=== PATIENT | female | born 1970 | race Caucasian/White ===

== ENCOUNTER → 2016-09-08 | Outpatient (CLI) | payer OTHER | LOC: FIMAGING 13:37 | PROVIDERS: ATTEND Internal Medicine | DX: M53.3 Sacrococcygeal disorders, not elsewhere classified (principal) ==

== ENCOUNTER → 2016-09-08 | Outpatient (CLI) | payer OTHER | LOC: FIMAGING 11:46 | PROVIDERS: ATTEND Internal Medicine | DX: M47.817 Spondylosis without myelopathy or radiculopathy, lumbosacral region (principal); M51.9 Unspecified thoracic, thoracolumbar and lumbosacral intervertebral disc disorder; M53.3 Sacrococcygeal disorders, not elsewhere classified; M51.36 Other intervertebral disc degeneration, lumbar region; M51.37 Other intervertebral disc degeneration, lumbosacral region ==

== ENCOUNTER → 2016-09-19 | Outpatient (CLI) | payer OTHER | LOC: FIMAGING 15:31 | DX: Z12.31 Encounter for screening mammogram for malignant neoplasm of breast (principal) | CPT/HCPCS: G0202 ==

== ENCOUNTER 2016-11-07 11:59 | Observation (INO) | payer OTHER ==
--- NOTE | 2016-11-07 12:26 | CPEKG ---
Heart Rate: 87 RR Interval: 690 P-R Interval: 136 QRSD Interval: 84 QT Interval: 348 QTC Interval: 419 P [place]: 56 QRS [place]: -5 T Wave [place]: 37 EKG Severity - NORMAL ECG - EKG Impression: SINUS RHYTHM Electronically Signed By: Jayme Parks 07-Nov-2016 12:49:21
--- NOTE | 2016-11-07 12:45 | EDPHY ---
H & P Stated Complaint: CP, L ARM PAIN 4 DAY-[place] ER NEG, BLURRED VISION. Source: Patient Exam Limitations: No limitations - Personal History LMP (Females 10-55): Hysterectomy Current Tetanus/Diphtheria Vaccine: Unsure Current Tetanus Diphtheria and Acellular Pertussis (TDAP): Unsure - Medical/Surgical History Hx Asthma: Yes Hx Chronic Respiratory Disease: No Hx Diabetes: No Hx Cardiac Disease: No Hx Renal Disease: No Hx Cirrhosis: No Hx Alcoholism: No Hx HIV/AIDS: No Hx Splenectomy or Spleen Trauma: No Other PMH: Hysterectomy, Choleycystectomy, x 2, asthma. - Family History Significant Family History: Other (See HPI) - Social History Smoking Status: Light smoker Alcohol Use: Occasionally Drug Use: None Time Seen by Provider: 11/07/16 12:35 HPI/ROS: HPI: 46-year-old female presents to emergency department with chief concern 4/ 10 left-sided chest pain radiating into her left arm. Pain is intermittent lasting 15-30 minutes and resolves for up to an hour. It is not pleuritic. Symptoms onset 2 days ago and are associated with dizziness, shortness of breath , nausea, sweats, intermittent blurry vision. Was evaluated and released from the [facility] Emergency Department 2 evenings ago. Had nasal congestion 1 week ago that has resolved. Denies fever, chills, myalgias, cough, abdominal pain, vomiting, diarrhea, rash, urinary symptoms. No calf pain or swelling. Past medical history notable for untreated hyperlipidemia, hysterectomy, cholecystectomy, , asthma, anxiety, depression. Family history includes mother with coronary artery disease and 7 stents, 1st in her 40s. Mother from heart failure. Occasional alcohol, light smoker x2 years. ROS:10 point review of systems is negative other than as stated in HPI (Rosalba Alvarez) - Social History Additional Social History: (Rosalba Alvarez) - Physical Exam Exam: Vital signs stable, reviewed by me General: Awake, alert, calm, cooperative. No acute distress. Head: Normalocephalic. Atraumatic. EENT: PERRLA. EOMI. No pallor or injection. Anicteric. No nystagmus. No injection. TMs intact bilaterally with normal landmarks. No rhinnorhea, nasal passages clear. Oropharynx without redness, exudates, or lesions. Tonsils 2+ bilaterally, no exudates. Neck: Supple, nontender. No lymphadenopathy. Full range of motion. No meningismus. No carotid bruit, no JVD. Respiratory: Breathing unlabored. Breath sounds equal bilaterally and clear to auscultation. No adventitious sounds. CV: Chest nontender, atraumatic. Heart rate regular. No murmur, distal pulses 2+ bilaterally. Brisk cap refill all extremities. GI: Abdomen soft, nontender. Bowel sounds normoactive and positive x4 quadrants. Neuro: Alert. Oriented x 3. Speech clear. Nonfocal cranial nerves throughout. Sensation intact all extremities. Skin: Skin warm, dry, intact. No rashes, abrasions, or lacerations. Skin turgor normal. Extremities: Full range of motion in all 4 extremities. Strength 5+ all extremities. (Rosalba Alvarez) Constitutional: Initial Vital Signs Temperature (C) 36.8 C 11/07/16 12:02 Heart Rate 78 11/07/16 12:02 Respiratory Rate 18 11/07/16 12:02 Blood Pressure 141/90 H 11/07/16 12:02 O2 Sat (%) 98 11/07/16 12:02 O2 Delivery Mode Room Air Allergies/Adverse Reactions: codeine Allergy (Intermediate, Verified 11/07/16 12:06) Vomiting Home Medications: Medication Instructions Recorded Albuterol [Proventil Inhaler HFA 1 - 2 puffs IH DAILY PRN 11/07/16 (*)] Aspirin [Aspirin 325 mg (*)] 325 mg PO DAILY 11/07/16 Basic Digest Enzyme 1 TIDMEAL 11/07/16 Gabapentin [Neurontin 300 MG (*)] 300 mg PO HS 11/07/16 Herbals/Supplements -Info Only 1 ea PO DAILY 11/07/16 Ibuprofen [Motrin (*)] 800 mg PO DAILY PRN 11/07/16 Omeprazole [Prilosec 20 mg] 20 mg PO HS 11/07/16 Medical Decision Making - Diagnostics Imaging Results: Imaging Impressions Chest X-Ray 11/07/16 12:15 Impression: Mild cardiac silhouette enlargement, without congestive heart failure or focal infiltrate. ED Course/Re-evaluation: 1245:46-year-old female presents to ED with chest pain that has been ongoing for 2 days. Had a negative workup apparently at [facility] 2 evenings ago. Cardiac risk factors include hyperlipidemia, smoking. Her mother had 7 stents, 1st in her 40s. History includes anxiety but she has not experienced chest pain with this. Vitals are stable. EKG shows a sinus rhythm, rate 87, no evidence of ischemia. Reviewed by myself. Chest x-ray and labs are pending. 1352: D-dimer within normal. Troponin negative. Patient continues to have 4/ 10 chest pain. Given 2 mg morphine, 0.4 sublingual nitro with some improvement. Given her concerning family history, her history of untreated hyperlipidemia, she will be admitted under observation for repeat serial troponins. Report given to Carissa Fong np of hospitalist service. (Rosalba Alvarez) Differential Diagnosis: Differential diagnosis includes but is not limited to ACS, pulmonary embolism, musculoskeletal causes including costochondritis, anxiety, URI/pneumonia, reactive airway disease (Rosalba Alvarez) - Data Points Laboratory Results: Laboratory Results 11/07/16 13:00 11/07/16 13:00 11/07/16 11/07/16 11/07/16 13:00 13:00 13:00 WBC 5.28 10^3/uL 10^3/uL (3.80-9.50) RBC 4.94 10^6/uL 10^6/uL (4.18-5.33) Hgb 14.9 g/dL g/dL (12.6-16.3) Hct 43.3 % % (38.0-47.0) MCV 87.7 fL fL (81.5-99.8) MCH 30.2 pg pg (27.9-34.1) MCHC 34.4 g/dL g/dL (32.4-36.7) RDW 12.4 % % (11.5-15.2) Plt Count 252 10^3/uL 10^3/uL (150-400) MPV 10.3 fL fL (8.7-11.7) Neut % (Auto) 59.3 % % (39.3-74.2) Lymph % (Auto) 31.1 % % (15.0-45.0) [place] % (Auto) 6.6 % % (4.5-13.0) Eos % (Auto) 1.7 % % (0.6-7.6) Baso % (Auto) 0.9 % % (0.3-1.7) Nucleat RBC Rel Count 0.0 % % (0.0-0.2) Absolute Neuts (auto) 3.13 10^3/uL 10^3/uL (1.70-6.50) Absolute Lymphs (auto) 1.64 10^3/uL 10^3/uL (1.00-3.00) Absolute Monos (auto) 0.35 10^3/uL 10^3/uL (0.30-0.80) Absolute Eos (auto) 0.09 10^3/uL 10^3/uL (0.03-0.40) Absolute Basos (auto) 0.05 10^3/uL 10^3/uL (0.02-0.10) Absolute Nucleated RBC 0.00 10^3/uL 10^3/uL (0-0.01) Immature Gran % 0.4 % % (0.0-1.1) Immature Gran # 0.02 10^3/uL 10^3/uL (0.00-0.10) D-Dimer < 0.27 ug/mLFEU ug/mLFEU (0.00-0.50) Sodium 142 mEq/L mEq/L (134-144) Potassium 4.3 mEq/L mEq/L (3.5-5.2) Chloride 108 mEq/L mEq/L (97-110) Carbon Dioxide 23 mEq/l mEq/l (22-31) Anion Gap 11 mEq/L mEq/L (8-16) BUN 10 mg/dL mg/dL (7-23) Creatinine 0.8 mg/dL mg/dL (0.6-1.0) Estimated GFR > 60 Glucose 84 mg/dL mg/dL (70-100) Calcium 9.5 mg/dL mg/dL (8.5-10.4) Troponin I < 0.012 ng/mL ng/mL (0-0.034) Medications Given: Discontinued Medications Morphine Sulfate (Morphine) 2 mg IVP EDNOW ONE Stop: 11/07/16 13:44 Last Admin: 11/07/16 14:16 Dose: 2 mg Nitroglycerin (Nitrostat) 0.4 mg SL EDNOW ONE Stop: 11/07/16 13:44 Last Admin: 11/07/16 14:15 Dose: 0.4 mg Departure - Departure Disposition: [facility] Inpatient Acute Clinical Impression: Chest pain in adult Condition: Good
[2016-11-07 13:11] LABS: % IMMATURE GRANULYOCYTES 0.4 % (0.0-1.1); ABSOLUTE IMMATURE GRANULOCYTES 0.02 10^3/uL (0.00-0.10); ADD DIFF? NO; ADD MORPH? NO; ADD SCAN? NO; ATYPICAL LYMPHOCYTE FLAG 10 (0-99); FRAGMENT RBC FLAG 0 (0-99); HEMATOCRIT 43.3 % (38.0-47.0); HEMOGLOBIN 14.9 g/dL (12.6-16.3); LEFT SHIFT FLG 0 (0-99); LIPEMIA HEMOLYSIS FLAG 90 (0-99); MEAN CELL HEMOGLOBIN 30.2 pg (27.9-34.1); MEAN CELL HEMOGLOBIN CONCENTR. 34.4 g/dL (32.4-36.7); MEAN CELL VOLUME 87.7 fL (81.5-99.8); MEAN PLATELET VOLUME 10.3 fL (8.7-11.7); PLATELET CLUMPS FLAG 30 (0-99); PLATELET COUNT 252 10^3/uL (150-400); RED BLOOD CELL COUNT 4.94 10^6/uL (4.18-5.33); RED CELL DISTRIBUTION WIDTH 12.4 % (11.5-15.2)
[2016-11-07 13:22] LABS: ANION GAP 11 mEq/L (8-16); CALCIUM 9.5 mg/dL (8.5-10.4); CARBON DIOXIDE 23 mEq/l (22-31); CHLORIDE 108 mEq/L (97-110); CREATININE 0.8 mg/dL (0.6-1.0); GLOMERULAR FILTRATION RATE > 60; GLUCOSE 84 mg/dL (70-100); POTASSIUM 4.3 mEq/L (3.5-5.2); SODIUM 142 mEq/L (134-144)
[2016-11-07 13:33] LABS: TROPONIN I < 0.012 ng/mL (0-0.034)
[2016-11-07] MEDS ORDERED: NITROGLYCERIN 0.4 MG BTL SL ONE (13:43)
[2016-11-07] MEDS ORDERED: ONDANSETRON 4 MG/2 ML VIAL IVP PRN (16:16)
[2016-11-07] MEDS ORDERED: LORazepam 0.5 MG TAB PO PRN (16:16)
[2016-11-07] MEDS ORDERED: ZOLPIDEM TARTRATE 5 MG TAB PO PRN (16:16)
[2016-11-07] MEDS ORDERED: ACETAMINOPHEN 325 MG TAB PO PRN (16:16)
[2016-11-07] MEDS ORDERED: ALBUTEROL 60 PUFFS/8 GM MDI IH PRN (16:16)
[2016-11-07] MEDS ORDERED: ONDANSETRON DISINTEGRATING 4 MG TAB PO PRN (16:16)
[2016-11-07] MEDS ORDERED: NS W/ 20 KCl/L 1,000 ML IV SCH (16:30)
--- NOTE | 2016-11-07 17:12 | GHP ---
[f rep st] HISTORY AND PHYSICAL DATE OF ADMISSION: 11/07/2016 CHIEF COMPLAINT: Chest pain. HISTORY OF PRESENT ILLNESS: This is a 46-year-old female with a positive family history of coronary disease, who noted 1 week ago, she developed an upper respiratory type congestion. 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 She was seen at [facility] and evaluated, and t hen discharged. 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 Sandoval, at [facility]. Some evalua tion was performed, but nothing further was ordered or done. Today, while she was walking in a park ing lot, she noted she was short of breath and developed chest pain in her left arm with radiation t o the back of her shoulder, down her arm and some feeling of numbness. The pain was rated anywhere from a 4 to an 8/10, and lasted anywhere from 1 minute to 15 minutes. The pain comes and goes in th is fashion. Has not been regularly associated with diaphoresis, but is associated with nausea. Hav ing said that, she reports she has had rather constant nausea for the last 2-3 days, but has not vom ited, has noted no change in her stools. During my examination on the PCU, the patient reports that she still having the pain coming and keven g. Of note, is the fact that her troponin initially in the emergency department was normal, as was her ECG. Risk factors here indicate that she has a positive family history for coronary disease wit h a mother who had early coronary disease in her 40s and had numerous stents throughout her life. A dditionally, she has untreated hyperlipidemia as she had a reaction to statins causing muscle weakne ss and twitching in her thighs and arms. Additionally, she has known reflux which was diagnosed 1 y ear ago, she was placed on Prilosec and the feeling of reflux and burning in the back of her throat has resolved. PAST MEDICAL HISTORY: 1. Asthma, which she has had on and off for several years and she notes some reoccurrence in the la st 5 days. She rarely uses her Proventil but she used it 5 days ago. 2. GERD, diagnosed 1 year ago by an ENT physician. She was placed on Prilosec and the problem has mostly resolved. 3. She has a chronic pain syndrome in her low back and tailbone related to injuries during pregnanc y and other complications. She has seen chiropractors for the problem, but continues to require becky apentin for the pain. 4. She has had a chronic problem of being overweight. Up until the time that she developed this se darrin back problem approximately a year ago, she had dropped her weight down to 230 pounds through di et and exercise, but it has gone back up due to the inability to exercise. PAST SURGICAL HISTORY: x2, a hysterectomy, along with a cholecystectomy. ALLERGY: To codeine, which causes a rash. MEDICATIONS: Noted in the EMR and have been reconciled. FAMILY HISTORY: Positive for coronary artery disease with her mother. REVIEW OF SYSTEMS: A 10-point review of systems is negative except as noted above. Significantly, she reports a URI type congestion problem approximately 5-7 days ago, which has resolved. She denie s having fever during this time, but reports rather persistent nausea in the last 2-3 days despite t he use of her Prilosec. She has had no prior history of kidney infections or renal stones, and note s no dysuria or back pain. There are no chronic joint problems. She did have muscular reaction to the use of Lipitor which should be listed as an allergy. She cannot take statin medications for her hyperlipidemia. 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 Having said that, she denies having cough, fever, sore throat, or earaches. PHYSICAL EXAMINATION: GENERAL: This is a pleasant but quiet female who appears comfortable and not in distress. VITAL SIGNS: Her blood pressure is mildly elevated at 141/90, with a normal sinus rh ythm. Respirations are normal and she has adequate oxygenation on room air. Her blood pressure has since fallen but continues to have a mild elevated diastolic pressure at 129/90. HEENT: Normal. The teeth, throat are benign. Tongue and buccal mucosa are normal. CHEST WALL: She has some tende rness around the left breast without erythema or signs of trauma. There are no masses noted in eith er breast, and chest wall shows normal inspiratory excursion without splinting. LUNGS: Clear to P and A without wheezing or rales. The left shoulder also was nontender in full active and passive ra nges of motion. HEART: Regular rate and rhythm. Singular S1, physiologically split S2. A soft SE M along the LSB without a gallop rhythm. JVP could not be assessed. Monitor shows persistent sinus rhythm without ectopy. ABDOMEN: Overweight. Normoactive bowel sounds. No masses, tenderness or organomegaly. EXTREMITIES: No edema, cyanosis or clubbing. LABORATORY: Initial BNP was normal with a normal troponin. Her D-dimer was normal, and her CBC was entirely normal. Electrocardiogram shows normal sinus rhythm at approximately 90, she has normal CT and QRS intervals . ECG is normal. Chest x-ray shows a borderline enlarged heart but no active cardiopulmonary disea se. The chest x-ray was reviewed by myself on the PAC system, as was the electrocardiogram. ASSESSMENT: 1. Acute chest pain with radiation into the left arm intermittently for the last 2 days. The patie nt has positive risk factors for coronary disease with untreated hyperlipidemia and a positive famil y history, along with her overweight state. Though her initial troponin was negative, we are going to check serial troponins, ECG, and should these be negative, a Lexiscan has been ordered for the mo rning. Her chest pain may have multiple noncardiac origins although cardiac origin must be ruled ou t. Other possibilities do include acute asthma issues, although I find no signs of wheezing. Also possible is reflux disease, though she reports it has been treated and much improved. Pulmonary emb olus seems highly unlikely, given her negative D-dimer. 2. Chronic pain, chronic back pain for which she is treated with Neurontin. I have ordered her marla e Neurontin. 3. Untreated hyperlipidemia. Lipid panel has been ordered for the morning and an assessment of ris k here and possible treatment should be pursued. 4. Gastroesophageal reflux disease, which has been treated for the past year with Prilosec. I will continue her Prilosec. 5. Code status is full. 6. DVT prophylaxis will be with Lovenox. PLAN: Serial troponins and ECG. Orthostatic blood pressures have also been ordered, as she reports feeling weak when standing. A Lexiscan has been ordered for the a.m., as she reports feeling weak when she is walking; otherwise, I would have ordered an exercise treadmill test. BILLING: The patient will be admitted to observation TIME: This admission required 55 minutes. /[id number]/MODL
[2016-11-07 17:36] LABS: TROPONIN I < 0.012 ng/mL (0-0.034)
[2016-11-07] MEDS ORDERED: PANTOPRAZOLE SODIUM 40 MG TAB PO SCH (21:00)
[2016-11-07] MEDS ORDERED: GABAPENTIN 300 MG CAP PO SCH (21:00)
[2016-11-08 04:32] LABS: % IMMATURE GRANULYOCYTES 0.2 % (0.0-1.1); ABSOLUTE IMMATURE GRANULOCYTES 0.01 10^3/uL (0.00-0.10); ADD DIFF? NO; ADD MORPH? NO; ADD SCAN? NO; ATYPICAL LYMPHOCYTE FLAG 20 (0-99); FRAGMENT RBC FLAG 0 (0-99); HEMATOCRIT 42.3 % (38.0-47.0); HEMOGLOBIN 14.2 g/dL (12.6-16.3); LEFT SHIFT FLG 0 (0-99); LIPEMIA HEMOLYSIS FLAG 80 (0-99); MEAN CELL HEMOGLOBIN 29.9 pg (27.9-34.1); MEAN CELL HEMOGLOBIN CONCENTR. 33.6 g/dL (32.4-36.7); MEAN CELL VOLUME 89.1 fL (81.5-99.8); MEAN PLATELET VOLUME 10.3 fL (8.7-11.7); PLATELET CLUMPS FLAG 0 (0-99); PLATELET COUNT 236 10^3/uL (150-400); RED BLOOD CELL COUNT 4.75 10^6/uL (4.18-5.33); RED CELL DISTRIBUTION WIDTH 12.3 % (11.5-15.2)
[2016-11-08 05:04] LABS: TROPONIN I < 0.012 ng/mL (0-0.034)
[2016-11-08] MEDS: [UNRECOGNIZED DRUG - OTHER] PO SCH ×2 (08:00→12:09)
[2016-11-08 08:04] VITALS: O2SAT 96
[2016-11-08 08:05] LABS: COLOR PALE YELLOW; LEUKOCYTE ESTERASE,URINE NEGATIVE (NEGATIVE); NITRITE,URINE NEGATIVE (NEGATIVE)
--- NOTE | 2016-11-08 08:47 | CPEKG ---
Heart Rate: 83 RR Interval: 723 P-R Interval: 144 QRSD Interval: 94 QT Interval: 348 QTC Interval: 409 P [place]: 69 QRS [place]: 17 T Wave [place]: 51 EKG Severity - NORMAL ECG - EKG Impression: SINUS RHYTHM Electronically Signed By: Anish Larson 08-Nov-2016 14:37:40
[2016-11-08] MEDS ORDERED: ENOXAPARIN 40 MG/0.4 ML SYR SC SCH (09:00)
--- NOTE | 2016-11-08 10:59 | HOSPPROG ---
Hospitalist Progress Note Assessment/Plan: #Acute chest pain: intermittent this morning. Lexiscan pending. Negative dimer and troponins #Diarrhea: earlier this week and 2 episodes today. No recent abx #Diet: NPO for stress #Disp: can DC today if normal stress Subjective: mild CP this morning, now resolved. Objective: Vital Signs Temp Pulse Resp BP Pulse Ox 37.0 C 73 13 115/74 96 11/08/16 08:01 11/08/16 08:01 11/08/16 08:01 11/08/16 08:01 11/08/16 08:01 Laboratory Results 11/08/16 03:36 11/07/16 11/08/16 11/09/16 05:59 05:59 05:59 Intake Total 1575 Balance 1575 - Physical Exam Constitutional: obese Eyes: PERRL Ears, Nose, Mouth, Throat: moist mucous membranes Cardiovascular: regular rate and rhythym, no murmur, rub, or gallop, other (TONIA chest pain with palpation, but different from presenting CP) Respiratory: no respiratory distress, no rales or rhonchi Gastrointestinal: normoactive bowel sounds, soft, non-tender abdomen Genitourinary: no bladder fullness Skin: warm Musculoskeletal: full muscle strength Neurologic: AAOx3, CN II-XII Intact ICD10 Worksheet Patient Problems: Problems Problem Status Onset Chest pain in adult Acute
[2016-11-08 12:37] VITALS: BP 106/69; PULSE 87; RESP 16; TEMP 98.5
[2016-11-08] MEDS ORDERED: REGADENOSON 0.4 MG/5 ML SYR IVP ONE (13:41)
[2016-11-08] MEDS ORDERED: traMADol 50 MG TAB PO PRN ×2 (14:48→14:59)
--- NOTE | 2016-11-08 14:49 | CPIP ---
[f rep st] INVASIVE CARDIAC PROCEDURE DATE OF PROCEDURE: 11/08/2016 PROCEDURE PERFORMED: Lexiscan nuclear stress test. INDICATIONS: Chest pain. COMPLICATIONS: None. DESCRIPTION OF PROCEDURE: Informed consent was obtained. The patient was established to the monito r and underwent Lexiscan infusion and nuclear med injection per protocol. FINDINGS: The baseline EKG shows sinus rhythm with nonspecific anterior T-wave abnormalities. With stress, there are no ST changes and no arrhythmias. Resting heart rate 86 beats per minute. Peak heart rate 115 beats per minute. Resting blood pressu re 100/62, oxygen saturation 95%. Peak infusion blood pressure 100/62. Oxygen saturation remained above 96%. CONCLUSIONS: Uneventful Lexiscan infusion. The patient did experience some shortness of breath olivia t resolved with caffeine and completion of the protocol. Await nuclear images. /[id number]/MODL
--- NOTE | 2016-11-09 08:36 | GDS ---
[f rep st] DISCHARGE SUMMARY DISCHARGE DIAGNOSES: 1. Atypical chest pain. 2. Asthma. 3. Gastroesophageal reflux disease. 4. Chronic pain syndrome. 5. Obesity. HPI: The patient is a 46-year-old female with a positive family of coronary disease who noted 1 week ago having a URI. This resolved, but 2 days prior to admission she became short of breath with palpitations. She also complained of left-sided chest pain 9 out of 10. She was evaluated at [facility] and was discharged. She then went and saw her PCP, but no studies were ordered. She was walking in the parking lot on the day of admission, became very short of breath, and again developed chest pain with radiation to her back and shoulder, along with left arm numbness. The pain lasted approximately 1 to 15 minutes and occurs intermittently. HOSPITAL COURSE BY PROBLEM: 1. Atypical chest pain: Differential including ACS, PE, anxiety versus musculoskeletal. D-dimer was negative. She has family history of CAD, thus underwent Lexiscan that was negative for myocardial ischemia. She did have some tenderness with palpation, so it could be musculoskeletal. 2. Asthma. Continue home medications. 3. Gastroesophageal reflux disease. Continue PPI. DISPOSITION: 1. The patient is stable for discharge. 2. Recommend follow up with her PCP. 3. Recommend exercise and weight loss. /[id number]/MODL MTDD
[2016-11-11 18:35] LABS: ALBUMIN 3.6 g/dL (3.5-5.0); BILIRUBIN,TOTAL 0.8 mg/dL (0.1-1.4); BILIRUBIN-CONJUGATED 0.4 mg/dL (0.0-0.5); BILIRUBIN-UNCONJUGATED 0.4 mg/dL (0.0-1.1); TOTAL PROTEIN 6.4 g/dL (6.3-8.2)
== END 2016-11-08 17:21 | disposition home or self-care (01) ==
LOC: F2W 14:32
PROVIDERS: ADMIT Internal Medicine Pulmonary Disease; ATTEND Internal Medicine
DX: R07.89 Other chest pain (principal); J45.909 Unspecified asthma, uncomplicated; K21.9 Gastro-esophageal reflux disease without esophagitis; G89.29 Other chronic pain; E66.9 Obesity, unspecified; E78.5 Hyperlipidemia, unspecified; R19.7 Diarrhea, unspecified
CPT/HCPCS: 71020; 78452; 93005; 93017; A9500; G0378; 96374; J1650; J2785